=== PATIENT | female | born 1940 | race Caucasian/White ===

== ENCOUNTER → 2017-01-06 | Outpatient (CLI) | payer OTHER ==
[~2017-01-06] MED LIST: APAP500 PO; B COMPLETE1 EACH PO; BENICAR HCT 201 EACH PO; BISACODYL10 MG RC; CALCIUM CITRAT1 EA14 PO; CENTRUM SILVER1 EAC1 PO; CLONAZEPAM 0.50.5 M1 PO; CLONAZEPAM OR; COLACE100 MG PO; FISH OIL 1,0001 EAC5 PO; FOSAMAX 70 MG T70 M1 PO; LEVOTHYROXIN0.075 MG PO; LOVENOX SC; MAG-AL PLUS SUS30 ML PO; MIRALAX17 GM PO; MIRALAX255 GM PO; MOBIC15 MG PO; MS CONTIN15 MG PO; NEXIUM40 MG PO; NORCO 5-325 TA1 EACH PO; ODORLESS GARLI500 MG PO; PEG3350510 GM PO; PERCOCET 10-321 EACH PO; PROBIOTIC1 EACH PO; PROPRANOLOL 1010 MG PO; SENOKOT-S1 TA1 PO; SYNTHROID 0.0.088 M1 PO; SYNTHROID75 MCG PO; TOPAMAX 25 MG T25 M1 PO; TYLENOL EX-STR500 M1 PO; VITAMIN C + RO500 MG PO; VITAMIN E800 UNIT PO; XARELTO10 M1 PO; ZOCOR 20 MG TAB20 M1 PO; [UNRECOGNIZED DRUG - OTHER] PO
== END ==
LOC: RAD 01:40
DX: Z12.31 Encounter for screening mammogram for malignant neoplasm of breast (principal)